=== PATIENT | female | born 1945 | race African-American/Black ===

== ENCOUNTER 2022-07-27 16:08 | Emergency (ER) | payer MEDICARE ==
[~2022-07-27] VITALS: Ht 160 cm; Wt 62.0 kg
[2022-07-27] MEDS ORDERED: KETOROLAC 60MG/2ML VIAL IM ONE (20:30)
[2022-07-27 20:57] VITALS: BP 120/69
[2022-07-27] MEDS ORDERED: IBUP-2029 MT (21:46)
== END 2022-07-27 22:00 | disposition home or self-care (01) ==
LOC: ER 16:08
DX: M54.50 Low back pain, unspecified (principal); M25.512 Pain in left shoulder; E78.00 Pure hypercholesterolemia, unspecified; J45.909 Unspecified asthma, uncomplicated; V43.52XA Car driver injured in collision with other type car in traffic accident, initial encounter; Y93.89 Activity, other specified; Y92.488 Other paved roadways as the place of occurrence of the external cause
CPT/HCPCS: 72100; 73030; 96372; 99283; J1885

== ENCOUNTER 2025-08-25 11:48 | Emergency (ER) | payer MEDICARE ==
[~2025-08-25] VITALS: Ht 160 cm; Wt 71.0 kg
[~2025-08-25 11:48] MED LIST: IBUP-1455 MT
[2025-08-25 11:51] VITALS: O2SAT 98
[2025-08-25 12:54] LABS: BASOPHILS % 1.2 % (0.0-2.0); EOSINOPHILS % 3.0 % (0.0-5.0); HEMATOCRIT. 36.7 % (36.0-48.0); HEMOGLOBIN. 11.6 g/dL (12.0-16.0); LYMPHOCYTES % 35.4 % (20.0-50.0); MEAN PLATELET VOLUME 9.3 fl (7.4-10.4); MONOCYTES % 7.6 % (2.0-8.0); NEUTROPHILS % 52.8 % (40.0-76.0); PLATELET 256 x1000/uL (130-400); RED BLOOD CELL COUNT 4.16 mill/uL (4.2-5.4); RED CELL DISTRIBUTION WIDTH 15.1 % (11.6-14.6)
[2025-08-25 13:00] LABS: INR 1.0
[2025-08-25 13:05] LABS: CREATININE 0.8 mg/dL (0.6-1.0)
[2025-08-25 13:06] LABS: TROPONIN I HIGH SENSITIVITY < 4 ng/L (3.0-34); UREA NITROGEN BLOOD 13 mg/dL (9-23)
[2025-08-25 13:07] LABS: ASPARTATE AMINOTRANSFERASE 19 IU/L (<34)
[2025-08-25 13:08] LABS: BILIRUBIN DIRECT 0.3 mg/dL (<=3.0); BILIRUBIN TOTAL 0.9 mg/dL (0.1-1.0); PROTEIN TOTAL 6.6 g/dL (6.0-8.3)
[2025-08-25] MEDS: IOHEXOL-350 100 ML BOTTLE ONE (13:57)
[2025-08-25 15:19] VITALS: TEMP 37.3
[2025-08-25 15:43] LABS: TROPONIN I HIGH SENSITIVITY < 4 ng/L (3.0-34)
[2025-08-25 17:26] VITALS: BP 107/54; PULSE 72; RESP 14; O2SAT 100
== END 2025-08-25 17:38 | disposition short-term general hospital (02) ==
LOC: ER 11:48 → CANBEDREQ 15:10 → ER 17:38
DX: R07.2 Precordial pain (principal); E78.00 Pure hypercholesterolemia, unspecified; J45.909 Unspecified asthma, uncomplicated; R06.02 Shortness of breath; Z79.899 Other long term (current) drug therapy
CPT/HCPCS: 99291; 71275; 80076; 80048; 83880; 83735; 85025; 85610; 84484; 36415; 71045; 93005; Q9967